=== PATIENT | female | born 1995 | race Caucasian/White ===

== ENCOUNTER → 2018-07-19 | Outpatient (CLI) | payer BC | END | disposition home or self-care (01) | LOC: C.LAB1850 17:09 | PROVIDERS: ATTEND Obstetrics & Gynecology | DX: O09.212 Supervision of pregnancy with history of pre-term labor, second trimester (principal); Z3A.00 Weeks of gestation of pregnancy not specified ==

== ENCOUNTER 2020-04-23 10:02 | Observation (INO) ==
--- NOTE | 2020-04-18 09:16 | Anesthesiology Consultation ---
Date of Service April 18, 2020 Assessment & Plan (1) Encounter for pre-operative examination: COVID Status: As of nurse interview 04/17, patient denies travel outside of [facility], known exposure/sick contacts, symptoms, or testing for coronavirus. UPT AM DOS. Chart Review Chart Review: Acceptable Risk for Surgery and Patient NOT seen in Pre Admission Testing History Surgery Operation Date: 04/23/20 07:30 Proposed Procedures p Bilateral Breast Reduction - Vero Spicer MD Height/Weight Height: 5 ft 4 in Weight: 86.183 kg Allergies Allergy/AdvReac Type Severity Reaction Status Date / Time Penicillins Allergy Unknown DOES NOT Verified 04/17/20 15:32 KNOW REACTION Medications Home Medications Medication Instructions Recorded Confirmed Last Taken oxycodone-acetaminophen 5 mg-325 1 tab PO Q4H PRN #18 tab 04/17/20 04/17/20 Unknown mg tablet Past Medical History Medical History (Updated 04/18/20 @ 09:15 by Jose Alfredo Gregory) Jka antibody positive Obesity Past Family History Family History Grandfather (Paternal) Diabetes Mother Premature labor Diabetes Son Sacrococcygeal teratoma Grandfather (Maternal) Diabetes Past Surgical History Surgical History Family history of reaction to anesthesia MOTHER-REQUIRES MORE ANESTHESIA TO TAKE EFFECT. History of section X 3 History of tonsillectomy and adenoidectomy Nausea and vomiting after administration of anesthetic agent [place] teeth removed Social History Smoking Status: Former smoker tobacco type: cigarettes Do You Dip or Chew Tobacco: No Smoking End Date: QUIT OVER 1 YEAR AGO Hx Alcohol Use: Yes Alcohol type: beer alcohol intake frequency: a few times a month Hx Substance Use: No substance use type: does not use Testing Laboratory Results 04/17/20 WBC: 7.11 H/H: 13.3/39.4 PLATELETS: 279 SODIUM: 137 POTASSIUM: 3.8 CHLORIDE: 105 CO2: 24 BUN: 14 CREATININE: 0.71 GLUCOSE: 87 PT: 10.3 PTT: 28.1 INR: 1.0
[~2020-04-23 10:02] MED LIST: CLINDAMYCIN 600 MG/54 ML BAG IV SCH; LR 15ML/HR IV SCH
[2020-04-23] MEDS ORDERED: SCOPOLAMINE 1.5 MG TDSY TD ONE (10:19)
[2020-04-23] MEDS ORDERED: fentaNYL citrate 100 MCG/2 ML VIAL ONE ×3 (11:49→18:38)
[2020-04-23] MEDS ORDERED: MIDAZOLAM HCL 1 MG/ML 2ML VIAL ONE (11:50)
--- NOTE | 2020-04-23 12:30 | History & Physical Bridge Note ---
Date of Service April 23, 2020 History & Physical Bridge Note I have examined the patient, reviewed the History & Physical and in the interval since the performance of the History & Physical I have noted the following changes of clinical significance: no changes noted Patient is aware of COVID-19 risks, is asymptomatic of any COVID-19 symptoms, and has not had any testing for COVID-19.
[2020-04-23] MEDS ORDERED: EPINEPHrine INJ 1 MG/ML AMP ONE (12:36)
[2020-04-23] MEDS ORDERED: LIDOCAINE HCL 1% 20 ML VIAL ONE (12:37)
[2020-04-23] MEDS ORDERED: BUPIVACAINE 0.25% 30 ML VIAL ONE (12:37)
[2020-04-23] MEDS ORDERED: LIDOCAINE/EPINEPHRINE 1% 20 ML VIAL ONE (12:37)
[2020-04-23] MEDS ORDERED: PROPOFOL IV EMULSION 10 MG/ML 20 ML VIAL IV ONE ×2 (13:29→14:05)
[2020-04-23] MEDS ORDERED: ROCURONIUM BROMIDE 10 MG/ML 5 ML VIAL ONE (13:29)
[2020-04-23] MEDS ORDERED: ONDANSETRON INJ 2 MG/ML 2 ML VIAL ONE (13:29)
[2020-04-23] MEDS ORDERED: LIDOCAINE HCL 2% 2 ML VIAL/AMP(20MG/ML) INFIL ONE (13:29)
[2020-04-23] MEDS ORDERED: METOCLOPRAMIDE HCL INJ 5 MG/ML 2 ML VIAL IV PRN (14:11)
[2020-04-23] MEDS ORDERED: ePHEDrine sulfate 50 MG/ML AMP IV PRN (14:11)
[2020-04-23] MEDS ORDERED: fentaNYL citrate 100 MCG/2 ML VIAL IV PRN (14:11)
[2020-04-23] MEDS ORDERED: HYDROmorphone INJ 2 MG/ML SYR/VIAL IV PRN (14:11)
[2020-04-23] MEDS ORDERED: PROMETHAZINE HCL 12.5 MG in SODIUM CHLORIDE 0.9% 50 ML IV PRN ×2 (14:11→18:32)
[2020-04-23] MEDS ORDERED: ATROPINE SULFATE 0.1 MG/ML 10ML SYR IV PRN (14:11)
[2020-04-23] MEDS ORDERED: ONDANSETRON INJ 2 MG/ML 2 ML VIAL IV PRN (14:11)
[2020-04-23] MEDS ORDERED: HYDROmorphone INJ 2 MG/ML SYR/VIAL ONE (14:24)
[2020-04-23] MEDS ORDERED: NEOSTIGMINE METHYLSULFATE 5 MG/5 ML SYR ONE (18:00)
[2020-04-23] MEDS ORDERED: GLYCOPYRROLATE 0.2 MG/ML VIAL ONE (18:00)
--- NOTE | 2020-04-23 18:14 | Post Operative Brief Note ---
PG Immediate Post Op with CF Date of Surgery April 23, 2020 Pre & Post Diagnosis Operation Date: 04/23/20 11:40 Pre-Op Diagnosis: Bilateral Breast Hypertrophy Post-Op Diagnosis: Bilateral Breast Hypertrophy I identified the patient and participated in the time-out.: Yes Procedure Operation Date: 04/23/20 11:40 Actual Procedures p Bilateral Breast Reduction(Bilateral) - Vero Spicer MD Surgeon Vero Spicer MD Box Truck Washer Magdalene Zarate PA-C Estimated Blood Loss 60 Findings Consistent with Post-Op Diagnosis Specimens Specimen Description: Permanent specimens (sent fresh) A: left breast tissue - 592g B: right breast tissue - 578g Drains Salgado Catheter (straight cath at end of case) and Braxton-Wayne Drain (15fr round x1 for each side) Anesthesia Type General Complications none Disposition Disposition: Recovery Room
--- NOTE | 2020-04-23 18:20 | Operative Report ---
PG Post Operative Report Pre & Post Diagnosis Operation Date: 04/23/20 11:40 Pre-Op Diagnosis: Bilateral Breast Hypertrophy Post-Op Diagnosis: Bilateral Breast Hypertrophy I identified the patient and participated in the time-out.: Yes Procedure Operation Date: 04/23/20 11:40 Actual Procedures p Bilateral Breast Reduction(Bilateral) - Vero Spicer MD Surgeon Vero Spicer MD Supervising Librarian Magdalene Zarate PA-C Estimated Blood Loss 60 Findings Consistent with Post-Op Diagnosis Specimens left breast 592 grams to pathology right breast 578 grams Drains JPx2 Anesthesia Type General Complications none Disposition Disposition: Recovery Room Indications back, neck and shoulder pain, intertrigo due to macromastia Description of Procedure The risks, benefits, and alternatives of the procedure were explained to the patient who agreed and signed consent. She was identified and marked in the preoperative holding area. She was brought to the operating room where she was positioned supine and placed under general anesthesia without incident. Surgical site was prepped and draped sterilely. A time-out procedure was performed. I began with the left side. Markings were reassessed and an 8 cm pedicle was marked. 1% lidocaine with epinephrine was used to anesthetize the planned incisions. A 42 mm cookie cutter was used to circumscribe the nipple-areolar complex. The previously marked 8 cm pedicle was incised using a 15 blade scalpel and deepithelized. I began with the medial dissection of the pedicle using electrocautery. Cautery was used to incise through dermis and breast parenchyma down to the chest wall, taking care not to undermine the pedicle during dissection. A similar procedure was undertaken on the lateral aspect of the pedicle again taking care not to undermine. Lastly, the pedicle was dissected out superiorly using electrocautery and this was carried down to the chest wall as well. I then began with excision of the medial breast tissue followed by lateral aspect of the breast tissue and surrounding keyhole incision. A 15 blade scalpel was used to make the inframammary fold incision and electrocautery was used to deepen the incision through dermis and breast parenchyma. Dissection was then carried superiorly to the level of the superior incision. Superior incision was then incised using a 15 blade scalpel and again dissected using electrocautery. This was undertaken laterally and then around the keyhole portion of the incision. Care was taken to leave some fat on the lateral pectoralis fascia in order to protect the T4 intercostal nerve. Hemostasis was achieved with electrocautery. The specimen was passed off in its entirety for weighing. Additional resection was undertaken from the superior flap in order to facilitate closure of the breast and to provide the best shape. The total resection weight of the left breast was 592 grams. The wound was irrigated with saline and hemostasis was achieved with electrocautery. 0.25% Marcaine plain was used to anesthetize the incisions as well as the pectoralis fascia. A 15 Indonesian Adebayo drain was brought out through a separate stab incision. The nipple-areolar complex was brought into the keyhole using 2-0 Vicryl deep dermal suture. The wound was closed first in a lateral to mid breast direction and then medial to mid breast direction using 2-0 Vicryl deep dermal sutures. Vertical limb was also approximated using 2-0 Vicryl deep dermals and the nipple-areolar complex was inset using 2-0 Vicryl deep dermal sutures. Next, the superficial dermal layer was closed using 2-0 PDO running Quill suture along the inframammary fold and 3-0 PDS interrupted dermal sutures along the vertical limb and nipple-areolar complex. Lastly 3-0 Monocryl running subcuticular suture was placed. A similar procedure was undertaken on the right side with maximal excision weight of 578 grams. Breasts were symmetric and nipple-areolar complexes were viable bilaterally following wound closure. Dermabond Prineo was applied along the inframammary fold and vertical limb and Dermabond was placed around the nipple-areolar complex. Dry dressings and a surgical bra were placed. The patient was awakened and transferred to recovery room in satisfactory condition. Magdalene Zarate PA-C was present and scrubbed throughout the procedure and was instrumental in providing retraction during dissection of the pedicle and assisting in wound closure. I attest to the content of the Intraoperative Record and any orders documented therein. Any exceptions are noted below.
[2020-04-23] MEDS ORDERED: DiphenhydrAMINE HCL 50 MG/ML VIAL IV PRN (18:32)
[2020-04-23] MEDS ORDERED: MoRPHine SULFATE 2 MG/ML CARP IV PRN (18:32)
[2020-04-23] MEDS ORDERED: OXYCODONE/ACETAMINOPHEN 5mg/325mg TAB PO PRN (18:32)
[2020-04-23] MEDS ORDERED: LORazepam 0.5 MG TAB PO PRN (18:32)
[2020-04-23] MEDS ORDERED: MoRPHine SULFATE 4 MG/ML 1 ML CARP\\VIAL IV PRN (18:32)
--- NOTE | 2020-04-23 19:18 | Anesthesiology Progress Note ---
Date of Service April 23, 2020 Anesthesia Post Procedure Vital Signs Vital Signs: Temp Pulse Pulse Resp BP BP Pulse Ox 04/23/20 19:15 81 20 134/74 100 04/23/20 19:05 76 19 134/74 100 04/23/20 18:56 36.8 C 83 13 123/92 100 04/23/20 10:21 36.9 C 75 16 115/65 98 Transfer of Care Handoff Completed per policy Notes Mental Status: alert / awake / arousable and participated in evaluation Patient Amnestic to Procedure: Yes Nausea / Vomiting: adequately controlled Pain: adequately controlled Airway Patency, RR, SpO2: stable & adequate BP & HR: stable & adequate Hydration State: stable & adequate Anesthetic Complications: no major complications apparent and Pt Satisfied with anesthetic care
[2020-04-23] MEDS: OXYCODONE/ACETAMINOPHEN 5mg/325mg TAB PO PRN (20:18)
[2020-04-23] MEDS: ONDANSETRON INJ 2 MG/ML 2 ML VIAL IV PRN (20:26)
[2020-04-23] MEDS: D5W AND 1/2NSS + 20MEQ KCL 20 MEQ/1,000 ML BAG IV SCH (21:20)
[2020-04-23] MEDS: CLINDAMYCIN 600 MG in DEXTROSE 5% 50 ML IV SCH (21:22)
[2020-04-24] MEDS: OXYCODONE/ACETAMINOPHEN 5mg/325mg TAB PO PRN ×3 (03:39→12:37)
[2020-04-24] MEDS: ONDANSETRON INJ 2 MG/ML 2 ML VIAL IV PRN (03:40)
[2020-04-24] MEDS: CLINDAMYCIN 600 MG in DEXTROSE 5% 50 ML IV SCH ×2 (05:34→12:40)
[2020-04-24] MEDS: MoRPHine SULFATE 2 MG/ML CARP IV PRN ×2 (06:23→10:28)
[2020-04-24] MEDS: D5W AND 1/2NSS + 20MEQ KCL 20 MEQ/1,000 ML BAG IV SCH ×2 (07:32→15:47)
--- NOTE | 2020-04-24 08:31 | Surgery Progress Note ---
Date of Service April 24, 2020 Assessment & Plan (1) Breast hypertrophy: POD #1 s/p Bilateral Breast Reduction Patient is doing well, pain controlled with PO pain medication. She is tolerating a regular diet without issue. Nausea has resolved today. Prescription for Zofran sent to pharmacy in case of nausea. She is pleased with the results of her surgery so far and notes an improvement in her pre-op symptoms of neck, shoulder, and back pain. ROCKY drains removed and optifoam dressings placed. We reviewed discharge instructions. Patient ok for discharge to home today. She is to return to our office tomorrow for her first post-op appointment. All questions answered. Tal Pineda is resting comfortably in bed. She reports that she did have some immediate post-op nausea, which resulted in 1 episode of emesis. She reports that her nausea has resolved today. She reports that her pain is controlled with PO pain medication. She has noticed an improvement in her pre-op symptoms of neck, shoulder, and back pain. Physical Exam Physical Exam: On physical exam- surgical bra and surgical dressings intact, dry. ROCKY drains x [address] with serosang drainage. ROCKY drains easily removed today at bedside. Optifoam dressings placed. No complications from drain removal, patient tolerated well. Nipples viable. Incisions are clean, dry, intact. No signs of infection. Results & Data Vital Signs (Past 12 Hours) Vital Signs Temp Pulse Pulse Resp BP Pulse Ox 04/24/20 07:45 36.9 C 76 16 99/64 L 98 04/24/20 03:53 37.0 C 76 20 102/64 98 04/23/20 23:50 36.9 C 87 18 103/66 98 04/23/20 21:51 36.7 C 94 H 94 H 16 107/70 98 04/23/20 21:10 36.9 C 108 H 17 130/75 100 PG Care Time/CCT Total # of Minutes Spent Total Time Spent with Patient: Total time spent is greater than 50% in coordination of care (as documented) at patient's floor/unit and/or counseling patient: Coding Level of Care Code 20202 Subseq Obs Care Lvl 1 Diagnoses Breast hypertrophy N62
[2020-04-24] MEDS ORDERED: MULTIVITAMIN TAB PO SCH (09:00)
--- NOTE | 2020-04-24 17:16 | Discharge Summary ---
Date of Service April 24, 2020 Admission HPI Per Admitting Provider Please see admission H & P. Admission Exam Per Admitting Provider Please see admission H & P. Principal Diagnosis Bilateral Symptomatic Macromastia Discharge Data Allergies Allergy/AdvReac Type Severity Reaction Status Date / Time Penicillins Allergy Unknown DOES NOT Verified 04/23/20 10:18 KNOW REACTION Procedures Performed Operation Date: 04/23/20 11:40 Actual Procedures p Bilateral Breast Reduction(Bilateral) - Vero Spicer MD Hospital Course (1) Breast hypertrophy: Miriam is a 24-year-old female with Bilateral Symptomatic Macromastia. She was taken to the OR and underwent bilateral breast reduction. There were no in traoperative complications. She was taken to recovery and transferred to med/surg for observation. On POD #1, she was feeling a bit sore, but overall doing well. She did experience some post-op nausea, but that had resolved by the following morning. She was tolerating a regular diet, voiding on her own, and ambulating without issue. On exam, her vitals were stable. Her incisions were clean, dry, intact. Nipples are viable. Her drains were removed without issue at bedside and optifoam dressings placed. She was discharged home with instructions to follow-up in the office in 1 day. All questions answered. POD #1 s/p Bilateral Breast Reduction Patient is doing well, pain controlled with PO pain medication. She is tolerating a regular diet without issue. Nausea has resolved today. Prescription for Zofran sent to pharmacy in case of nausea. She is pleased with the results of her surgery so far and notes an improvement in her pre-op symptoms of neck, shoulder, and back pain. ROCKY drains removed and optifoam dressings placed. We reviewed discharge instructions. Patient ok for discharge to home today. She is to return to our office tomorrow for her first post-op appointment. All questions answered. Total Time Total Time Spent Total Time Spent (In Minutes): 5 Discharge Plan Discharge Items Patient Disposition: Home - Self-Care Reason For Visit: Breast Hypertrophy Discharge Diagnosis: Breast Hypertrophy Activity: As commented below Non-emergency contact: Surgeon Call non-emergency contact if: you have any medication questions, your pain is not controlled, your temperature is above 101.5, your wound has increased redness and your wound has increased drainage Follow-up/Referrals: Vero Spicer MD [Physician] - 04/25/20 9:00 am Chantel Campoverde MD [Primary Care Provider] - Diet: Regular Addtl Attending Provider Instructions: ACTIVITY RECOMMENDATIONS: __Normal activities _X_No bending, lifting or straining __No driving _X_Driving allowed when you are off pain medications _X_Walking permitted __You should have help at home for ___ days DRESSINGS: __No dressings required _X_Keep surgical bra, dressings dry/in place until first office visit- Your office visit is tomorrow, April 25, 2020. __Remove dressings ___ and leave dressings off __Apply ice ___ days __Remove dressings and reapply garment __Apply antibiotic ointment (Bacitracin, Neosporin, etc) to wounds 3-4 times/day for 10 days BATHING: _X_Keep dressings dry _X_Sponge bathing permitted, but keep surgical bra and surgical dressings dry. __Showering permitted _X_No swimming, hot tubs or soaking in a tub MEDICATIONS: Resume previous medications unless instructed otherwise by your surgeon. _X_Do not use aspirin, Motrin, Advil or Ibuprofen as these may promote bleeding. Please use Tylenol. _X_Prescription(s) provided: prescription for post-op pain medication provided at pre-operative visit. Prescription for Zofran (nausea medication) was sent to your pharmacy today. Please use as prescribed. SPECIAL CARE INSTRUCTIONS: * It is normal to have a mild fever after surgery. If your temperature is higher than 101.5 degrees F, please call the office at [phone]. * Constipation is a typical side effect of pain medication. An [id number] stool softener will help relieve this. * Leaking around surgical drains may occur and should not cause concern. Sometimes these drains become clogged. If this happens, remove the bulb and milk the clot out of the tube, then replace the bulb. * Drainage from wounds after liposuction is normal and should be expected. Garments will become soiled. You should protect furniture and bedding. This drainage should mostly subside within 2-3 days. Leave garments in place unless instructed to remove them. * If you have unusual drainage from a wound or are concerned you have an infection or have any questions or concerns, please call the office at [phone]. FOLLOW UP VISIT: If not already scheduled, please call the office, , when you return home after surgery to schedule an appointment to be seen in _1__ day. Pending Studies at Discharge: Yes Stand-Alone Forms: [facility], Opioid Pain Management Medications and DC Order Prescriptions: New ondansetron HCl [Zofran] 4 mg tablet 4 mg PO Q6H PRN (Reason: nausea and vomiting) Qty: 12 RF: 0 Continued oxycodone-acetaminophen [Endocet] 5-325 mg tablet 1 tab PO Q4H PRN (Reason: pain) Qty: 18 RF: 0 Discharge Orders: Discharge Order (Routine); Ordered 04/24/20 Ordered By: Magdalene Spangler/Other Patient Handouts: DVT Prevention, Surgery Post Op Drain Emptying Steps Admission Data Admit Date/Time: 04/23/20 18:32 Attending Provider: Vero Spicer Admit Provider: Vero Spicer Primary Care Provider: Chantel Campoverde Other Interventions: Discharge Summary Assessment (RN) Last Done: 04/24/20 13:00 DC Date/Time DO NOT enter until pt leaves facility: 04/24/20 16:06 Coding Level of Care Code 57066 OBS Care - Discharge Diagnoses Breast hypertrophy N62
== END 2020-04-24 16:06 | disposition home or self-care (01) ==
LOC: ASU 10:02 → 3E 10:02